=== PATIENT | female | born 1975 | race Caucasian/White ===

== ENCOUNTER 2020-07-11 22:03 | Emergency (ER) | payer MEDICAID ==
[2020-07-11] MEDS ORDERED: Sodium Chloride 0.9% 10 ML Syringe FLUSH PRN (22:09)
[2020-07-11] MEDS ORDERED: Morphine 4 MG/ML Syringe IVPUSH ONE (22:19)
[2020-07-11] MEDS ORDERED: Ondansetron 4 MG/2 ML SDV IV ONE (22:19)
[2020-07-11] MEDS ORDERED: Lactated Ringers 1,000 ML IV ONE (22:19)
--- NOTE | 2020-07-11 22:28 | EDM.PDOC ---
ED HPI GENERAL MEDICAL PROBLEM - General Stated Complaint: abd pain Time Seen by Provider: 07/11/20 22:20 Source of Information: Reports: Patient History Limitations: Reports: No Limitations - History of Present Illness INITIAL COMMENTS - FREE TEXT/NARRATIVE: Patient comes emergency department today with complaints of left lower quadrant pain. This patient has complained of ongoing and increasing left lower quadrant pain over the past 4 to 5 days. This is an identical presentation that she had about 5 years ago when she had diverticulitis ended up with a perforation and was in the hospital for 5 days. She tried a clear liquid diet and pain management at home but the pain continues and it is slowly getting worse in her left lower quadrant. She denies any fever or chills. No chest pain no sh ortness of breath or difficulty breathing. No weakness dizziness lightheadedness. She has had some nausea without vomiting. She has had some loose stools although she initially thought that she was constipated and took some laxatives. No hematuria dysuria or urinary frequency. No flank pain. No COVID exposure no COVID symptoms. left lower abdomen Pain Score (Numeric/FACES): 5 - Related Data Allergies Allergy/AdvReac Type Severity Reaction Status Date / Time No Known Allergies Allergy Verified 07/12/20 04:38 Home Meds: Home Meds Acetaminophen/HYDROcodone [[place] 325-5 MG] 1 tab PO Q6H PRN #6 tablet 07/12/20 [Rx] Albuterol Sulfate [Albuterol Sulfate Hfa] 2 puff INH Q4H PRN 07/12/20 [History] Ciprofloxacin HCl [Cipro] 500 mg PO BID #20 tablet 07/12/20 [Rx] FLUoxetine HCl [Prozac] 40 mg PO DAILY 07/12/20 [History] metroNIDAZOLE [Flagyl] 500 mg PO Q8H #30 tab 07/12/20 [Rx] Past Medical History - Past Health History Medical/Surgical History: Denies Medical/Surgical History Psychiatric History: Reports: Depression ED ROS GENERAL - Review of Systems Review Of Systems: Comprehensive ROS is negative, except as noted in HPI. ED EXAM, GI/ABD - Physical Exam Exam: See Below Exam Limited By: No Limitations General Appearance: Alert, WD/WN, No Apparent Distress Ears: Normal External Exam Nose: Normal Inspection Throat/Mouth: Normal Inspection Head: Atraumatic, Normocephalic Neck: Normal Inspection Respiratory/Chest: No Respiratory Distress, Lungs Clear, Chest Non-Tender, Decreased Breath Sounds Cardiovascular: Normal Peripheral Pulses GI/Abdominal Exam: Normal Bowel Sounds, Soft, No Organomegaly, No Distention, Guarding (LLQ), Rebound (LLQ), Tender (Referred tenderness from the rest of the abd to the LLQ with positive peritoneal signs. ). No: Rigid (Female) Exam: Deferred Rectal (Female) Exam: Deferred Back Exam: Normal Inspection, Full Range of Motion. No: CVA Tenderness (L), CVA Tenderness (R) Extremities: Normal Inspection, Normal Range of Motion, Normal Capillary Refill Neurological: Alert, Oriented, CN II-XII Intact, Normal Cognition, No Motor/Sensory Deficits Psychiatric: Normal Affect, Normal Mood Skin Exam: Warm, Dry, Intact, Normal Color, No Rash Course - Vital Signs Last Recorded V/S: Last Vital Signs Temp 97 F 07/11/20 22:03 Pulse 62 07/12/20 05:16 Resp 16 07/12/20 05:16 BP 171/106 H 07/12/20 05:16 Pulse Ox 96 07/11/20 22:03 - Orders/Labs/Meds Orders: Active Orders 24 hr Category Date Time Status CULTURE BLOOD [BC] Stat Lab 07/11/20 22:28 Results CULTURE BLOOD [BC] Stat Lab 07/11/20 22:45 Received Blood Culture x2 Reflex Set [OM.PC] Stat Oth 07/11/20 22:19 Ordered Peripheral IV Insertion Adult [OM.PC] Stat Oth 07/11/20 22:09 Ordered Labs: Laboratory Tests 07/11/20 07/11/20 07/11/20 Range/Units 22:28 22:28 22:28 WBC 12.4 H (4.0-10.0) x10^3/uL RBC 4.81 (4.00-5.50) x10^6/uL Hgb 15.0 (12.0-16.0) g/dL Hct 43.5 (33.0-47.0) % MCV 90.4 (78.0-93.0) fL MCH 31.2 (26.0-32.0) pg MCHC 34.5 (32.0-36.0) g/dL RDW Coeff of Kim 13.8 (10.0-15.0) % Plt Count 271 (130-400) x10^3/uL Neut % (Auto) 74.4 (50.0-80.0) % Lymph % (Auto) 18.6 L (25.0-50.0) % Petroleum % (Auto) 5.5 (2.0-11.0) % Eos % (Auto) 1.3 (0.0-4.0) % Baso % (Auto) 0.2 (0.2-1.2) % Sodium 136 (136-145) mmol/L Potassium 3.3 L (3.5-5.1) mmol/L Chloride 100 (98-107) mmol/L Carbon Dioxide 25 (21-32) mmol/L Anion Gap 14.3 (10-20) mmol/L BUN 7 (7-18) mg/dL Creatinine 1.0 (0.55-1.02) mg/dL Est Cr Clr Drug Dosing TNP Estimated GFR (MDRD) > 60 Glucose 161 H (74-106) mg/dL Lactic Acid 2.5 H* (0.4-2.0) mmol/L Calcium 8.5 (8.5-10.1) mg/dL Corrected Calcium 9.30 (8.5-10.1) mg/dL Total Bilirubin 0.3 (0.2-1.0) mg/dL AST 9 L (15-37) U/L ALT 13 L (14-59) U/L Alkaline Phosphatase 89 (46-116) U/L C-Reactive Protein 4.9 H (<=0.9) mg/dL Total Protein 7.1 (6.4-8.2) g/dL Albumin 3.0 L (3.4-5.0) g/dL Globulin 4.1 Albumin/Globulin Ratio 0.73 Urine Color (YELLOW) Urine Appearance (CLEAR) Urine pH (5.0-8.0) Ur Specific [place] Urine Protein (NEGATIVE) mg/dL Urine Glucose (UA) (NEGATIVE) mg/dL Urine Ketones (NEGATIVE) mg/dL Urine Occult Blood (NEGATIVE) Urine Nitrite (NEGATIVE) Urine Bilirubin (NEGATIVE) Urine Urobilinogen (0.2) EU/dL Ur Leukocyte Esterase (NEGATIVE) Urine RBC (NOT SEEN) /HPF Urine WBC (NOT SEEN) /HPF Ur Squamous Epith Cells (NEGATIVE) /HPF Urine Bacteria (NEGATIVE) /HPF Urine Mucus (NEGATIVE) /LPF 07/11/20 Range/Units 23:01 WBC (4.0-10.0) x10^3/uL RBC (4.00-5.50) x10^6/uL Hgb (12.0-16.0) g/dL Hct (33.0-47.0) % MCV (78.0-93.0) fL MCH (26.0-32.0) pg MCHC (32.0-36.0) g/dL RDW Coeff of Kim (10.0-15.0) % Plt Count (130-400) x10^3/uL Neut % (Auto) (50.0-80.0) % Lymph % (Auto) (25.0-50.0) % Petroleum % (Auto) (2.0-11.0) % Eos % (Auto) (0.0-4.0) % Baso % (Auto) (0.2-1.2) % Sodium (136-145) mmol/L Potassium (3.5-5.1) mmol/L Chloride (98-107) mmol/L Carbon Dioxide (21-32) mmol/L Anion Gap (10-20) mmol/L BUN (7-18) mg/dL Creatinine (0.55-1.02) mg/dL Est Cr Clr Drug Dosing Estimated GFR (MDRD) Glucose (74-106) mg/dL Lactic Acid (0.4-2.0) mmol/L Calcium (8.5-10.1) mg/dL Corrected Calcium (8.5-10.1) mg/dL Total Bilirubin (0.2-1.0) mg/dL AST (15-37) U/L ALT (14-59) U/L Alkaline Phosphatase (46-116) U/L C-Reactive Protein (<=0.9) mg/dL Total Protein (6.4-8.2) g/dL Albumin (3.4-5.0) g/dL Globulin Albumin/Globulin Ratio Urine Color Light yellow (YELLOW) Urine Appearance Slightly cloudy H (CLEAR) Urine pH 6.0 (5.0-8.0) Ur Specific [place] 1.010 Urine Protein Negative (NEGATIVE) mg/dL Urine Glucose (UA) Negative (NEGATIVE) mg/dL Urine Ketones Negative (NEGATIVE) mg/dL Urine Occult Blood Moderate H (NEGATIVE) Urine Nitrite Negative (NEGATIVE) Urine Bilirubin Negative (NEGATIVE) Urine Urobilinogen 0.2 (0.2) EU/dL Ur Leukocyte Esterase Negative (NEGATIVE) Urine RBC 10-20 H (NOT SEEN) /HPF Urine WBC 0-5 (NOT SEEN) /HPF Ur Squamous Epith Cells Few H (NEGATIVE) /HPF Urine Bacteria Rare (NEGATIVE) /HPF Urine Mucus Not seen (NEGATIVE) /LPF Meds: Medications Discontinued Medications Generic Name Dose Route Start Last Admin Trade Name Freq PRN Reason Stop Dose Admin Hydrocodone Bitart/Acetaminophen 1 packet 07/12/20 00:39 07/12/20 01:09 Take Home: Acetam/Hydrocodon 325-5 Mg, 5 Pack PO 07/12/20 00:40 1 packet ONETIME ONE Administration Diphenhydramine HCl 25 mg 07/12/20 00:53 07/12/20 00:58 Benadryl IVPUSH 07/12/20 00:54 25 mg ONETIME ONE Administration Lactated Ringer's 1,000 mls @ 999 mls/hr 07/11/20 22:19 07/11/20 22:50 Ringers, Lactated IV 07/11/20 23:19 999 mls/hr ONETIME ONE Administration Ciprofloxacin/Dextrose 400 mg/ 200 mls @ 200 mls/hr 07/11/20 23:37 07/11/20 23:50 Premix IV 07/12/20 00:36 200 mls/hr STAT ONE Administration Metronidazole 500 mg/ Premix 100 mls @ 100 mls/hr 07/11/20 23:37 07/12/20 01:02 IV 07/12/20 00:36 100 mls/hr ONETIME ONE Administration Iopamidol 100 ml 07/11/20 23:21 07/11/20 23:22 Isovue-300 (61%) IVPUSH 07/11/20 23:22 100 ml ONETIME ONE Administration Morphine Sulfate 4 mg 07/11/20 22:19 07/11/20 23:00 Morphine IVPUSH 07/11/20 22:20 4 mg ONETIME ONE Administration Ondansetron HCl 4 mg 07/11/20 22:19 07/11/20 22:55 Zofran IV 07/11/20 22:20 4 mg ONETIME ONE Administration Sodium Chloride 10 ml 07/11/20 22:09 Saline Flush FLUSH ASDIRECTED PRN Keep Vein Open - Radiology Interpretation Free Text/Narrative:: CT abd pelvis per radiology acute diverticulitis without evident complication. - Re-Assessments/Exams Free Text/Narrative Re-Assessment/Exam: Initially the patient was given nausea and pain medicine. Blood cultures x 2. Mild elevation of the CRP and WBC. CT abd pelvis per radiology shows multifocal left distal colonic diverticulitis without macro perf or complications. The patient's pain was much improved following the above therapy. I relayed the findings of the uncomplicated acute diverticulitis of the left lower quadrant. She was given Cipro and Flagyl IV. She was able to tolerate oral fluids. She would really like to go home and try outpatient management which I think is appropriate at this time by the guidelines. We will discharge her home on Cipro and Flagyl pain medicine and diet as tolerated. The current evidence-based practice does not suggest any specific dietary restrictions. We will have her follow-up with her primary care on Thursday for close follow-up with this diverticulitis. If she is worse in any way spikes a fever uncontrolled pain nausea or vomiting or unable to keep her medications down she is to recheck. She is understanding of this and her questions are answered. Departure - Departure Time of Disposition: 01:00 Disposition: Home, Self-Care 01 Clinical Impression: Acute diverticulitis - Discharge Information Prescriptions: Ciprofloxacin HCl [Cipro] 500 mg PO BID #20 tablet metroNIDAZOLE [Flagyl] 500 mg PO Q8H #30 tab Acetaminophen/HYDROcodone [[place] 325-5 MG] 1 tab PO Q6H PRN #6 tablet PRN Reason: Pain Instructions: Diverticulitis, [id number] Referrals: Shaneka Lim DO [Primary Care Provider] - Forms: ED Department Discharge Additional Instructions: Easy diet the next few days. Nothing really rich fatty spicy or hard to digest. Push oral fluids as much as possible over the next few days. Tylenol and or Ibuprofen as needed for pain. Cipro, 1 tablet twice daily for the next [address] [facility] start this in the morning. Flagyl, 1 tablet three times a day for the next [address] [facility] start in the morning as well. If pain not controlled with above. [place] 1 tablet every 6 hrs with food as needed for pain. Caution sedation. Do not take this with Tylenol as it has Tyle nol in the medication as well. Starter pack from the ED sent and RX sent to [facility] as well. Return to the ED if new or worsening symptoms. Especially worsening pain, fever or unable to tolerate oral antibiotics. Recheck with PCP on thursday. Sepsis Event Note (ED) - Focused Exam Vital Signs: Vital Signs Pulse Resp BP 07/12/20 05:16 62 16 171/106 H - My Orders Last 24 Hours: My Active Orders 07/11/20 22:09 Peripheral IV Insertion Adult [OM.PC] Stat 07/11/20 22:19 Blood Culture x2 Reflex Set [OM.PC] Stat 07/11/20 22:28 CULTURE BLOOD [BC] Stat 07/11/20 22:45 CULTURE BLOOD [BC] Stat - Assessment/Plan Last 24 Hours: My Active Orders 07/11/20 22:09 Peripheral IV Insertion Adult [OM.PC] Stat 07/11/20 22:19 Blood Culture x2 Reflex Set [OM.PC] Stat 07/11/20 22:28 CULTURE BLOOD [BC] Stat 07/11/20 22:45 CULTURE BLOOD [BC] Stat
[2020-07-11 22:53] LABS: CHLORIDE,CL 100 mmol/L (98-107); SODIUM,NA 136 mmol/L (136-145)
[2020-07-11 22:54] LABS: ANION GAP 14.3 mmol/L (10-20)
[2020-07-11] MEDS ORDERED: Iopamidol 612 MG/ML 100 ML Bottle IVPUSH ONE (23:21)
[2020-07-11] MEDS ORDERED: metroNIDAZOLE/Normal Saline 500 MG in Premix Bag 1 BAG IV ONE (23:37)
[2020-07-11] MEDS ORDERED: Ciprofloxacin in D5W 400 MG in Premix Bag 1 BAG IV ONE ×2 (23:37)
[2020-07-12] MEDS ORDERED: Take Home: Acetaminophen/HYDROcodone 325-5 MG, 5 Tab Pack PO ONE (00:39)
[2020-07-12] MEDS ORDERED: diphenhydrAMINE 50 MG/ML SDV IVPUSH ONE (00:53)
[2020-07-12 05:18] VITALS: BP 171/106; PULSE 62
--- NOTE | 2020-07-12 07:58 | CT ---
[id number] CT/CT Abdomen Pelvis W IV EXAM: ABDOMEN AND PELVIS CT WITH CONTRAST INDICATION: LLQ PAIN COMPARISON: None. DISCUSSION: There are inflammatory changes around a diverticulum of the descending colon consistent with acute diverticulitis. Trace infiltrating fluid around the area of inflammation, but no drainable fluid collection/abscess, free air or other evident complication. 36 mm left ovarian cyst. 9 mm hepatic cyst along the right margin of the falciform ligament. Possible mild fatty infiltration of the liver. The gallbladder, pancreas, spleen, adrenal glands, kidneys, small bowel, and the appendix are normal in appearance. Scattered degenerative changes are noted in the spine particularly at L5-S1. The osseous structures are otherwise unremarkable. IMPRESSION: 1. Acute diverticulitis of the descending colon without evident complication. Efra Penny MD 07/12/20 0756 Thank you for allowing us to participate in the care of your patient.
== END 2020-07-12 02:02 | disposition home or self-care (01) ==
LOC: VM.ED 22:03
DX: K57.32 Diverticulitis of large intestine without perforation or abscess without bleeding (principal); F32.9 Major depressive disorder, single episode, unspecified; Z79.899 Other long term (current) drug therapy
CPT/HCPCS: 36415; 74177; 80053; 81001; 83605; 85025; 86140; 87040; 96361; 96365; 96367; 96375; 99284-25; A9270-GY; J0744; J1200; J2270; J2405; J3490; J7120; Q9967

== ENCOUNTER 2022-05-13 12:21 | Emergency (ER) | payer MEDICAID ==
[2022-05-13 12:45] VITALS: BP 178/90; PULSE 68
[2022-05-13] MEDS ORDERED: Aspirin 81 MG Tab.Chew PO ONE (12:58)
[2022-05-13 13:07] LABS: CHLORIDE,CL 103 mmol/L (98-107); SODIUM,NA 140 mmol/L (136-145)
[2022-05-13 13:14] LABS: ANION GAP 15.4 mmol/L (5-15); ESTIMATED GFR 71 mL/min (>=60)
== END 2022-05-13 13:36 | disposition home or self-care (01) ==
LOC: VM.ED 12:21
DX: R07.89 Other chest pain (principal); J44.9 Chronic obstructive pulmonary disease, unspecified; Z72.0 Tobacco use
CPT/HCPCS: 71045; 80053; 82550; 83615; 84484; 85025; 93005; 93010; 99284; 99285-25; A9270-GY

== ENCOUNTER 2024-04-19 18:02 | Observation (INO) | payer MEDICAID ==
[2024-04-19] MEDS ORDERED: Sodium Chloride 0.9% 10 ML Syringe FLUSH PRN (18:20)
[2024-04-19 18:37] LABS: BASOPHILS PERCENT AUTO 0.2 % (0.2-1.2); EOSINOPHILS ABSOLUTE AUTO 0.2 x10^3/uL (0.0-0.5); HEMATOCRIT 43.3 % (33.0-47.0); HEMOGLOBIN 14.8 g/dL (12.0-16.0); IMMATURE GRAN ABSOLUTE AUTO 0.03 x10^3/uL (0.00-0.07); LYMPHOCYTES ABSOLUTE AUTO 2.1 x10^3/uL (1.0-4.8); LYMPHOCYTES PERCENT AUTO 12.3 % (25.0-50.0); MEAN CORPUSCULAR HEMOGLOBIN 29.1 pg (26.0-32.0); MEAN CORPUSCULAR HGB CONC 34.2 g/dL (32.0-36.0); MEAN CORPUSCULAR VOLUME 85.2 fL (78.0-93.0); MONOCYTES PERCENT AUTO 5.7 % (2.0-11.0); NEUTROPHILS ABSOLUTE AUTO 13.8 x10^3/uL (1.8-7.7); NEUTROPHILS PERCENT AUTO 80.6 % (50.0-80.0); RED BLOOD CELL COUNT 5.08 x10^6/uL (4.00-5.50); WHITE BLOOD CELL COUNT,WBC 17.1 x10^3/uL (4.0-10.0)
[2024-04-19 18:39] LABS: BILIRUBIN,URINE SMALL (NEGATIVE); GLUCOSE,URINE NEGATIVE (NEGATIVE); KETONES,URINE NEGATIVE (NEGATIVE); LEUKOCYTE ESTERASE,URINE NEGATIVE (NEGATIVE); NITRITE,URINE NEGATIVE (NEGATIVE); OCCULT BLOOD,URINE MODERATE (NEGATIVE); PH,URINE 5.5 (5.0-8.0); PROTEIN,URINE TRACE mg/dL (NEGATIVE)
[2024-04-19 18:48] LABS: APPEARANCE,URINE SLIGHTLY CLOUDY (CLEAR); BACTERIA,URINE FEW /HPF (NOT SEEN); COLOR,URINE DARK YELLOW (YELLOW); MUCUS,URINE FEW /LPF (NOT SEEN); SQUAMOUS EPITHELIAL CELLS,UR FEW /HPF (NOT SEEN); WBC,URINE 0-5 /HPF (NOT SEEN)
[2024-04-19 18:52] LABS: PLATELET COUNT,PLT 332 x10^3/uL (130-400)
[2024-04-19 18:55] LABS: A/G RATIO 0.67; ALANINE AMINOTRANSFERASE,ALT 11 U/L (14-59); ALBUMIN 3.4 g/dL (3.4-5.0); ALKALINE PHOSPHATASE 96 U/L (46-116); AMYLASE 51 U/L (25-115); ASPARTATE AMNIOTRANSFERASE,AST 11 U/L (15-37); BILIRUBIN TOTAL 0.4 mg/dL (0.2-1.0); BLOOD UREA NITROGEN,BUN 14 mg/dL (7-18); C-REACTIVE PROTEIN 6.16 mg/dL (<=0.50); CALCIUM 9.4 mg/dL (8.5-10.1); CARBON DIOXIDE,CO2 25 mmol/L (21-32); CHLORIDE,CL 100 mmol/L (98-107); CREATININE 0.9 mg/dL (0.55-1.02); GLUCOSE RANDOM 102 mg/dL (70-99); LIPASE 41 U/L (19-71); POTASSIUM,K 3.9 mmol/L (3.5-5.1); PROTEIN TOTAL,TP 8.5 g/dL (6.4-8.2); SODIUM,NA 139 mmol/L (136-145)
[2024-04-19 18:57] LABS: LACTIC ACID 0.9 mmol/L (0.4-2.0)
[2024-04-19 18:58] LABS: ANION GAP 17.9 mmol/L (5-15); ESTIMATED GFR 79 mL/min (>=60)
[2024-04-19] MEDS: Iopamidol 612 MG/ML 100 ML Bottle IVPUSH ONE (19:34)
[2024-04-19] MEDS: Lactated Ringers 1,000 ML IV ONE ×2 (19:35→22:36)
[2024-04-19] MEDS: Piperacillin/Tazobactam 4.5 GM in Sodium Chloride 0.9% 100 ML IV ONE (20:19)
[2024-04-20] MEDS: Piperacillin/Tazobactam 4.5 GM in Sodium Chloride 0.9% 100 ML IV SCH (01:08)
[2024-04-20] MEDS ORDERED: Diazepam 5 MG Tab PO PRN (02:41)
[2024-04-20] MEDS: HYDROmorphone 0.5 MG/0.5 ML Syringe IVPUSH PRN (03:04)
[2024-04-20] MEDS ORDERED: Zolpidem 5 MG Tab PO PRN (03:16)
[2024-04-20 06:46] LABS: HEMATOCRIT 38.7 % (33.0-47.0); HEMOGLOBIN 13.1 g/dL (12.0-16.0); MEAN CORPUSCULAR HEMOGLOBIN 28.9 pg (26.0-32.0); MEAN CORPUSCULAR HGB CONC 33.9 g/dL (32.0-36.0); MEAN CORPUSCULAR VOLUME 85.2 fL (78.0-93.0); PLATELET COUNT,PLT 270 x10^3/uL (130-400); RED BLOOD CELL COUNT 4.54 x10^6/uL (4.00-5.50)
[2024-04-20 06:47] LABS: WHITE BLOOD CELL COUNT,WBC 23.7 x10^3/uL (4.0-10.0)
[2024-04-20 07:02] LABS: BAND PERCENT MAN 3 % (0-6); LYMPHOCYTES ABSOLUTE MAN 2.4 x10^3/uL (1.0-4.8); LYMPHOCYTES PERCENT MAN 10 % (25-50); MONOCYTES ABSOLUTE MAN 1.2 x10^3/uL (0.0-0.8); MONOCYTES PERCENT MAN 5 % (2-11); NEUTROPHILS ABSOLUTE MAN 20.1 x10^3/uL (1.8-7.7); PLATELET COUNT ESTIMATE ADEQUATE; SEG NEUTROPHILS PERCENT MAN 82 % (50-80)
[2024-04-20] MEDS: Aspirin 81 MG Tab.EC PO SCH (08:22)
[2024-04-20] MEDS: Escitalopram 10 MG Tab PO SCH (08:22)
[2024-04-20] MEDS: Rosuvastatin 20 MG Tab PO SCH (08:22)
[2024-04-20] MEDS: Nicotine 14 MG/24 Hr Patch TRDERM SCH (08:25)
[2024-04-20] MEDS: Metoprolol Succinate 25 MG Tab.ER PO SCH (08:26)
[2024-04-20 13:46] VITALS: BP 108/64; PULSE 74
== END 2024-04-20 15:15 | disposition short-term general hospital (02) ==
LOC: VM.ED 18:02 → VM.MS 20:21
PROVIDERS: ADMIT Physician Assistant; ATTEND Physician Assistant
DX: K57.32 Diverticulitis of large intestine without perforation or abscess without bleeding (principal); J44.9 Chronic obstructive pulmonary disease, unspecified; F32.A Depression, unspecified; F41.9 Anxiety disorder, unspecified; F17.210 Nicotine dependence, cigarettes, uncomplicated; Z79.899 Other long term (current) drug therapy
CPT/HCPCS: 36415; 74177; 80053; 81001; 82150; 83605; 83690; 85025; 86140; 87040; 96361; 96365; 96366; 96375; 96376; 99223; 99239; 99285-25; A9270-GY; G0378; J1170; J2543; J3490; J7120; Q9967

== ENCOUNTER 2024-04-26 19:42 | Emergency (ER) | payer MEDICAID ==
[2024-04-26 20:19] LABS: BASOPHILS PERCENT AUTO 0.2 % (0.2-1.2); EOSINOPHILS ABSOLUTE AUTO 0.1 x10^3/uL (0.0-0.5); EOSINOPHILS PERCENT AUTO 0.7 % (0.0-4.0); HEMATOCRIT 36.6 % (33.0-47.0); HEMOGLOBIN 12.3 g/dL (12.0-16.0); IMMATURE GRAN ABSOLUTE AUTO 0.17 x10^3/uL (0.00-0.07); LYMPHOCYTES PERCENT AUTO 15.9 % (25.0-50.0); MEAN CORPUSCULAR HGB CONC 33.6 g/dL (32.0-36.0); MEAN CORPUSCULAR VOLUME 83.4 fL (78.0-93.0); MONOCYTES ABSOLUTE AUTO 1.6 x10^3/uL (0.0-0.8); MONOCYTES PERCENT AUTO 8.5 % (2.0-11.0); NEUTROPHILS ABSOLUTE AUTO 14.1 x10^3/uL (1.8-7.7); NEUTROPHILS PERCENT AUTO 73.8 % (50.0-80.0); PLATELET COUNT,PLT 357 x10^3/uL (130-400); RED BLOOD CELL COUNT 4.39 x10^6/uL (4.00-5.50)
[2024-04-26 20:30] LABS: BLOOD UREA NITROGEN,BUN 12 mg/dL (7-18); CALCIUM 8.9 mg/dL (8.5-10.1); CARBON DIOXIDE,CO2 26 mmol/L (21-32); CHLORIDE,CL 104 mmol/L (98-107); GLUCOSE RANDOM 141 mg/dL (70-99); POTASSIUM,K 3.4 mmol/L (3.5-5.1); SODIUM,NA 141 mmol/L (136-145)
[2024-04-26 20:31] LABS: ANION GAP 14.4 mmol/L (5-15); ESTIMATED GFR 70 mL/min (>=60)
[2024-04-26] MEDS: Ondansetron 4 MG/2 ML SDV IVPUSH ONE (20:58)
[2024-04-26] MEDS: Morphine 4 MG/ML Syringe IVPUSH ONE (21:01)
[2024-04-26 21:29] LABS: APPEARANCE,URINE CLEAR (CLEAR); BILIRUBIN,URINE SMALL (NEGATIVE); COLOR,URINE BROWN (YELLOW); GLUCOSE,URINE 100 mg/dL (NEGATIVE); KETONES,URINE 15 mg/dL (NEGATIVE); LEUKOCYTE ESTERASE,URINE SMALL (NEGATIVE); NITRITE,URINE NEGATIVE (NEGATIVE); OCCULT BLOOD,URINE MODERATE (NEGATIVE); PROTEIN,URINE 100 mg/dL (NEGATIVE)
[2024-04-26 21:31] LABS: BACTERIA,URINE MODERATE /HPF (NOT SEEN); CALCIUM OXALATE CRYSTALS,URINE MODERATE /HPF (NOT SEEN); MUCUS,URINE FEW /LPF (NOT SEEN); RBC,URINE 20-30 /HPF (NOT SEEN); SQUAMOUS EPITHELIAL CELLS,UR MODERATE /HPF (NOT SEEN); WBC,URINE 20-30 /HPF (NOT SEEN)
[2024-04-26] MEDS: Iopamidol 612 MG/ML 100 ML Bottle IVPUSH ONE (21:55)
[2024-04-26] MEDS: Piperacillin/Tazobactam 4.5 GM in Sodium Chloride 0.9% 100 ML IV ONE (23:20)
[2024-04-27] MEDS: Sodium Chloride 0.9% 1,000 ML IV SCH
[2024-04-27 00:12] VITALS: BP 128/60; PULSE 61
== END 2024-04-27 | disposition short-term general hospital (02) ==
LOC: VM.ED 19:42
DX: L02.211 Cutaneous abscess of abdominal wall (principal)
CPT/HCPCS: 36415; 80048; 81001; 85025; 87086; 96365; 96375; 99285-25; J2270; J2405; J2543; J3490; J7030; Q9967

== ENCOUNTER 2024-12-16 15:36 | Emergency (ER) | payer MEDICAID ==
[2024-12-16] MEDS ORDERED: Sodium Chloride 0.9% 10 ML Syringe FLUSH PRN (15:47)
[2024-12-16 15:57] LABS: BASOPHILS PERCENT AUTO 0.3 % (0.2-1.2); EOSINOPHILS ABSOLUTE AUTO 0.1 x10^3/uL (0.0-0.5); EOSINOPHILS PERCENT AUTO 1.6 % (0.0-4.0); HEMOGLOBIN 14.7 g/dL (12.0-16.0); IMMATURE GRAN ABSOLUTE AUTO 0.02 x10^3/uL (0.00-0.07); LYMPHOCYTES ABSOLUTE AUTO 2.4 x10^3/uL (1.0-4.8); LYMPHOCYTES PERCENT AUTO 26.6 % (25.0-50.0); MEAN CORPUSCULAR HEMOGLOBIN 29.2 pg (26.0-32.0); MEAN CORPUSCULAR HGB CONC 34.2 g/dL (32.0-36.0); MEAN CORPUSCULAR VOLUME 85.3 fL (78.0-93.0); MONOCYTES ABSOLUTE AUTO 0.6 x10^3/uL (0.0-0.8); MONOCYTES PERCENT AUTO 6.5 % (2.0-11.0); NEUTROPHILS ABSOLUTE AUTO 5.8 x10^3/uL (1.8-7.7); NEUTROPHILS PERCENT AUTO 64.8 % (50.0-80.0); PLATELET COUNT,PLT 221 x10^3/uL (130-400); RED BLOOD CELL COUNT 5.04 x10^6/uL (4.00-5.50)
[2024-12-16 16:04] LABS: APPEARANCE,URINE CLEAR (CLEAR); BILIRUBIN,URINE NEGATIVE (NEGATIVE); COLOR,URINE YELLOW (YELLOW); GLUCOSE,URINE NEGATIVE (NEGATIVE); KETONES,URINE NEGATIVE (NEGATIVE); LEUKOCYTE ESTERASE,URINE TRACE (NEGATIVE); NITRITE,URINE NEGATIVE (NEGATIVE); OCCULT BLOOD,URINE SMALL (NEGATIVE); PROTEIN,URINE NEGATIVE (NEGATIVE); UROBILINOGEN,URINE 0.2 EU/dL (0.2)
[2024-12-16 16:08] LABS: AMPHETAMINES SCREEN, URINE NEGATIVE (NEGATIVE); BARBITURATE SCREEN,URINE NEGATIVE (NEGATIVE)
[2024-12-16 16:09] LABS: BENZODIAZEPINES SCREEN,URINE NEGATIVE (NEGATIVE); BUPRENORPHINE SCREEN,URINE NEGATIVE (NEGATIVE); COCAINE METABOLITES,URINE NEGATIVE (NEGATIVE); METHADONE SCREEN, URINE NEGATIVE (NEGATIVE); METHAMPHETAMINE SCREEN, URINE NEGATIVE (NEGATIVE); OXYCODONE SCREEN,URINE NEGATIVE (NEGATIVE); PCP SCREEN,URINE NEGATIVE (NEGATIVE); THC SCREEN,URINE 50 NG/ML NEGATIVE (NEGATIVE)
[2024-12-16] MEDS: Labetalol 20 MG/4 ML Syringe IVPUSH ONE (16:12)
[2024-12-16 16:13] LABS: BACTERIA,URINE FEW /HPF (NOT SEEN); RBC,URINE 0-5 /HPF (NOT SEEN); SQUAMOUS EPITHELIAL CELLS,UR FEW /HPF (NOT SEEN); WBC,URINE 0-5 /HPF (NOT SEEN)
[2024-12-16] MEDS: LORazepam 2 MG/ML SDV IVPUSH ONE (16:14)
[2024-12-16 16:21] LABS: ALANINE AMINOTRANSFERASE,ALT 19 U/L (14-59); ALBUMIN 3.3 g/dL (3.4-5.0); ALKALINE PHOSPHATASE 95 U/L (46-116); ANION GAP 17.7 mmol/L (5-15); ASPARTATE AMNIOTRANSFERASE,AST 15 U/L (15-37); BILIRUBIN TOTAL 0.4 mg/dL (0.2-1.0); BLOOD UREA NITROGEN,BUN 10 mg/dL (7-18); C-REACTIVE PROTEIN 1.19 mg/dL (<=0.50); CALCIUM 9.2 mg/dL (8.5-10.1); CARBON DIOXIDE,CO2 24 mmol/L (21-32); CHLORIDE,CL 103 mmol/L (98-107); CREATININE 0.8 mg/dL (0.55-1.02); ESTIMATED GFR 91 mL/min (>=60); ETHANOL BLOOD MEDICAL 4 mg/dL (0-3); GLUCOSE RANDOM 159 mg/dL (70-99); MAGNESIUM 1.9 mg/dL (1.8-2.4); POTASSIUM,K 3.7 mmol/L (3.5-5.1); PROTEIN TOTAL,TP 7.4 g/dL (6.4-8.2); SODIUM,NA 141 mmol/L (136-145)
[2024-12-16 17:43] VITALS: BP 146/77; PULSE 66
== END 2024-12-16 17:07 | disposition home or self-care (01) ==
LOC: VM.ED 15:36
DX: I16.9 Hypertensive crisis, unspecified (principal); F45.8 Other somatoform disorders; J44.9 Chronic obstructive pulmonary disease, unspecified; Z79.899 Other long term (current) drug therapy; Z79.82 Long term (current) use of aspirin
CPT/HCPCS: 70450; 80053; 80305-QW; 80307; 81001; 83735; 84484; 85025; 86140; 87086; 93005; 93010; 96374; 96375; 99284; 99285-25; J1920; J2060